=== PATIENT | female | born 1935 | race American Indian/Alaskan Native ===

== ENCOUNTER 2016-11-26 09:24 | Emergency (ER) | payer MEDICARE, BC ==
[2016-11-26 09:25] VITALS: BMI 29.5
[2016-11-26 09:38] VITALS: TEMP 98.7
[2016-11-26] MEDS ORDERED: Famotidine 20mg/50ml 20 MG/50 ML BAG IV STA (10:13)
--- NOTE | 2016-11-26 10:15 | ED PDOC ---
Arrival/HPI - General Chief Complaint: Abdominal Pain Time Seen by Provider: 11/26/16 10:10 Historian: Patient - History of Present Illness Narrative History of Present Illness (Text): 11/26/16 10:10 A 81 year old female, who denies any past medical history, presents to the emergency department complaining of intermittent mid-abdominal discomfort for the past 2 days. Patient took Aleve, with relief. She denies any exacerbating factors. Patient notes normal bowel movements. She denies pain or discomfort at this time. Patient denies any fever, chills, nausea, vomiting, chest pain, shortness of breath, dyspnea on exertion or any other complaints. PMD: Dr. Benson Espinal Time/Duration: Other (2 days) Symptom Course: Intermittent Quality: Other Context: Home Past Medical History - Provider Review Nursing Documentation Reviewed: Yes - Infectious Disease Hx of Infectious Diseases: None - Cardiac Hx Hypertension: Yes - Pulmonary Hx Respiratory Disorders: No - Neurological Hx Neurological Disorder: No Hx Paralysis: No - HEENT Hx HEENT Disorder: Yes (glassees) Hx Cataracts: Yes (right eye sx) - Renal Hx Renal Disorder: No - Endocrine/Metabolic Hx Endocrine Disorders: No - Hematological/Oncological Hx Blood Disorders: No Hx Blood Transfusions: No Hx Blood Transfusion Reaction: No - Integumentary Hx Dermatological Disorder: No - Musculoskeletal/Rheumatological Hx Musculoskeletal Disorders: Yes Hx Falls: Yes Hx Fractures: Yes (R SHOULDER) - Gastrointestinal Hx Gastrointestinal Disorders: Yes Hx Gastrointestinal Ulcer: Yes - Genitourinary/Gynecological Hx Genitourinary Disorders: No - Psychiatric Hx Psychophysiologic Disorder: No Hx Emotional Abuse: No Hx Physical Abuse: No Hx Substance Use: No - Surgical History Hx Hysterectomy: Yes (partial) - Anesthesia Hx Anesthesia Reactions: No Hx Malignant Hyperthermia: No - Suicidal Assessment Feels Threatened In Home Enviroment: No Family/Social History - Physician Review Nursing Documentation Reviewed: Yes Family/Social History: No Known Family HX Smoking Status: Never Smoked Hx Alcohol Use: No Hx Substance Use: No Allergies/Home Meds Allergies/Adverse Reactions: Allergies No Known Allergies Allergy (Verified 11/26/16 09:33) Home Medications: Home Meds Medication Instructions Recorded Confirmed Aspirin [Adult Low Dose Aspirin EC] 81 mg PO DAILY 07/28/16 11/26/16 Enalapril Maleate [Vasotec] 5 mg PO DAILY 07/28/16 11/26/16 Physical Exam - Physical Exam Narrative Physical Exam (Text): - Review of Systems Constitutional: Normal. absent: Fatigue, Weight Change, Fevers Eyes: Normal ENT: denies sore throat, denies tristhmus Respiratory: Normal. absent: SOB, Cough, Sputum Cardiovascular: absent: Chest Pain, Palpitations, Syncope Gastrointestinal: (+) Mid abdominal Pain absent: Diarrhea, Nausea, Vomiting Genitourinary: Normal. absent: Dysuria, Frequency, Hematuria Musculoskeletal: Normal. absent: Arthralgias, Back Pain, Neck Pain Skin: no rashes, no erythema Neurological: absent: Focal Weakness Endocrine: Normal Hemo/Lymphatic: Normal Psychiatric: No suicidal or homicidal ideations Physical exam Patient appears age appropriate in no distress, speaking full sentences without difficulty - Systems Exam Head: Present: Atraumatic, Normocephalic Pupils: Present: PERRL Extroacular Muscles: Present: EOMI Conjunctiva: Present: Normal Mouth: Present: Moist Mucous Membranes Neck: Present: Normal Range of Motion. No: MIDLINE TENDERNESS, Paraspinal Tenderness Respiratory/Chest: Present: Clear to Auscultation, Good Air Exchange. No: Respiratory Distress, Accessory Muscle Use, Tachypneic Cardiovascular: Present: Regular Rate and Rhythm, Normal S1, S2, Peripheal Pulses Present. No: Murmurs Abdomen: Present: Normal Bowel Sounds. No: Tenderness, Distention, Peritoneal Signs, Rebound, Guarding Back: Present: Normal Inspection. No: Midline Tenderness, Paraspinal Tenderness Upper Extremity: Present: Normal Inspection. No: Cyanosis, Edema Lower Extremity: Present: Normal Inspection. No: Edema Neurological: Present: GCS=15, Speech Normal, cranial nerves II through XII fully intact with no cerebellar abnormality, neurosensory fully intact. No focal neurological deficits. Skin: Present: Warm, Dry, Normal Color. No: Rashes Lymphatic: Present: OX3, NI, NC Psychiatric: Present: Alert, Oriented x 3, Normal Insight, Normal Concentration Vital Signs Reviewed: Yes Vital Signs Temp Pulse Resp BP Pulse Ox 11/26/16 13:30 70 18 129/78 97 11/26/16 09:34 98.7 F 69 16 130/79 98 Temperature: Afebrile Blood Pressure: Normal Pulse: Regular Respiratory Rate: Normal Appearance: Positive for: Well-Appearing, Non-Toxic, Comfortable Pain Distress: None Mental Status: Positive for: Alert and Oriented X 3 Medical Decision Making ED Course and Treatment: 11/26/16 10:10 Impression: A 81 year old female with mid abdominal discomfort. Physical exam unremarkable. Plan: -- Abdomen and pelvis CT -- Chest xray -- EKG -- Labs -- Urinalysis -- Pepcid -- Reassess and disposition Progress Notes: EKG shows NSR at [address]-segment elevations, normal intervals. Interpreted by me. Report Date : 11/26/2016 10:30:41 Procedure: Chest xray Dictator : Naresh Arteaga MD IMPRESSION: No active disease. EKG interpreted by ER physician. Normal sinus. No ST-segment elevations. Normal intervals. 11/26/16 15:22 CT Abd/Pelvis IMPRESSION: No acute abnormality. Soft tissue density partially included in this examination in the right infrahilar region. This may represent a hilar vessel but evaluation with CT of the chest is advised to exclude a pulmonary mass. pt informed of the above finding and that she needs to f/u with her PMD Dr. Espinal for further w/u On reevaluation, patient reports that she feels much better and would like to be discharged home. Patient's repeat abdominal exam is soft, nontender, non distended with positive bowel sounds in all 4 quadrants and no peritoneal signs. Patient is tolerating PO without any difficulty. trichomonus in urine, will be dc'd on flagyl. pt instructed not to consume alcohol for 2 weeks pt's Hb 8.3, this is her baseline. Pt states she understands to return to the ER right away for new or worsening symptoms or for inability to f/u with PMD or specialist as instructed. Patient states that she fully agrees with and understands discharge instructions. States that she agrees with the plan and disposition. Verbalized and repeated discharge instructions and plan. I have given the patient opportunity to ask any additional questions. - Lab Interpretations Lab Results: 11/26/16 09:55 11/26/16 09:55 Lab Results 11/26/16 14:25: Urine Color Yellow, Urine Appearance Clear, Urine pH 6.0, Ur Specific [place] >= 1.030, Urine Protein Trace H, Urine Glucose (UA) Negative, Urine Ketones Trace H, Urine Blood Negative, Urine Nitrate Negative, Urine Bilirubin Negative, Urine Urobilinogen 0.2, Ur Leukocyte Esterase Moderate H, Urine RBC Negative, Urine WBC 10 - 15, Ur Epithelial Cells 4 - 5, Urine Bacteria Trace, Urine Other Trichomonas 11/26/16 09:55: PT 11.0, INR 1.02, APTT 27.8 11/26/16 09:55: WBC 4.6, RBC 2.83 L, Hgb 8.3 L, Hct 26.0 L, MCV 91.9, MCH 29.3, MCHC 31.9, RDW 14.3, Plt Count 277, MPV 8.9, Gran % 48.9 L, Lymph % (Auto) 37.3 H, [place] % (Auto) 10.5 H, Eos % (Auto) 2.6, Baso % (Auto) 0.7, Gran # 2.24, Lymph # 1.7, [place] # 0.5, Eos # 0.1, Baso # 0.03 11/26/16 09:55: Sodium 143, Potassium 3.5 L, Chloride 106, Carbon Dioxide 28, Anion Gap 13, BUN 9, Creatinine 0.6 L, Est GFR ( Amer) > 60, Est GFR (Non -Af Amer) > 60, Random Glucose 113 H, Calcium 9.2, Total Bilirubin 0.5, AST 23, ALT 22, Alkaline Phosphatase 64, Lactate Dehydrogenase 457, Total Creatine Kinase 167, Troponin I < 0.01, Total Protein 7.2, Albumin 3.8, Globulin 3.4, Albumin/Globulin Ratio 1.1 I have reviewed the lab results: Yes - RAD Interpretation Radiology Orders: 11/26/16 10:13 ABD & PELVIS W/O PO OR IV CONT [CT] Stat 11/26/16 10:15 CHEST PORTABLE [RAD] Stat - Medication Orders Current Medication Orders: Discontinued Medications Famotidine (Pepcid 20mg/50ml Premix) 20 mg in 50 mls @ 100 mls/hr IV STAT STA Stop: 11/26/16 10:42 Last Admin: 11/26/16 10:32 Dose: 100 mls/hr eMAR Start Stop Document 11/26/16 10:32 SE (Rec: 11/26/16 10:32 SE [facility] [id number]) Intravenous Solution Start Date 11/26/16 Start Time 10:32 - Scribe Statement The provider has reviewed the documentation as recorded by the Piedad Bowen Provider Scribe Attestation: All medical record entries made by the Soniaibe were at my direction and personally dictated by me. I have reviewed the chart and agree that the record accurately reflects my personal performance of the history, physical exam, medical decision making, and the department course for this patient. I have also personally directed, reviewed, and agree with the discharge instructions and disposition. Disposition/Present on Arrival - Present on Arrival Any Indicators Present on Arrival: No History of DVT/PE: No History of Uncontrolled Diabetes: No Urinary Catheter: No History of Decub. Ulcer: No History Surgical Site Infection Following: None - Disposition Have Diagnosis and Disposition been Completed?: Yes Diagnosis: Abdominal pain Disposition: HOME/ ROUTINE Disposition Time: 15:27 Patient Plan: Discharge Condition: GOOD Discharge Instructions (ExitCare): Abdominal Pain (ED) Additional Instructions: PLEASE RETURN TO THE EMERGENCY DEPARTMENT FOR NEW OR WORSENING SYMPTOMS. RETURN RIGHT AWAY IF YOU CANNOT FOLLOW UP WITH YOUR PRIMARY CARE DOCTOR, CLINIC, OR SPECIALIST IN 1-[address] Espinal for the incidental lung mass which needs to be followed up Do not drink alcohol while taking the antibiotics Prescriptions: Famotidine [Pepcid] 20 mg PO BID #14 tab Metronidazole [Flagyl] 500 mg PO BID #14 tab Referrals: Benson Espinal MD [Primary Care Provider] - Follow up with primary Forms: [employer] (Azeri)
[2016-11-26 10:25] LABS: BASO # 0.03 K/mm3 (0.0-2.0); BASO % 0.7 % (0.0-3.0); EOS # 0.1 (0.0-0.7); EOS % 2.6 % (1.5-5.0); GRAN # 2.24 (1.4-6.5); GRAN % 48.9 % (50.0-68.0); LYMPH # 1.7 (1.2-3.4); LYMPH % 37.3 % (22.0-35.0); MEAN CELL VOLUME 91.9 fl (80.0-105.0); MEAN CORPUSCULAR HEMOGLOBIN 29.3 pg (25.0-35.0); MEAN CORPUSCULAR HGB CONC 31.9 g/dl (31.0-37.0); MEAN PLATELET VOLUME 8.9 fl (7.0-11.0); MONO # 0.5 (0.1-0.6); MONO % 10.5 % (1.0-6.0); RED CELL DISTRIBUTION WIDTH 14.3 % (11.5-14.5); WHITE BLOOD COUNT 4.6 10^3/ul (4.5-11.0)
--- NOTE | 2016-11-26 10:32 | RAD ---
HISTORY: cough COMPARISON: 03/20/2016 FINDINGS: LUNGS: No active pulmonary disease. PLEURA: No significant pleural effusion identified, no pneumothorax apparent. CARDIOVASCULAR: Normal. OSSEOUS STRUCTURES: No significant abnormalities. VISUALIZED UPPER ABDOMEN: Normal. OTHER FINDINGS: None. IMPRESSION: No active disease.
[2016-11-26 10:33] LABS: ALB/GLOB RATIO 1.1 (1.1-1.8); ALKALINE PHOSPHATASE 64 U/L (38-126); ALT/SGPT 22 U/L (7-56); AST/SGOT 23 U/L (14-36); BILIRUBIN,TOTAL 0.5 mg/dL (0.2-1.3); BLOOD UREA NITROGEN 9 mg/dL (7-21); CALCIUM 9.2 mg/dL (8.4-10.5); CARBON DIOXIDE 28 mmol/L (21-33); CHLORIDE 106 mmol/L (98-107); GFR AFRICAN-AMERICAN > 60; GLUCOSE,RANDOM 113 mg/dL (70-110); POTASSIUM 3.5 mmol/L (3.6-5.0); SODIUM 143 mmol/L (132-148); TOTAL PROTEIN 7.2 g/dL (5.8-8.3)
[2016-11-26 10:44] LABS: INR 1.02 (0.93-1.08); PARTIAL THROMBOPLASTIN TIME 27.8 Seconds (23.7-30.8)
[2016-11-26 10:48] LABS: TROPONIN I < 0.01 ng/mL
[2016-11-26 13:39] VITALS: BP 129/78; PULSE 70; RESP 18; O2SAT 97
[2016-11-26 14:29] LABS: URINE APPEARANCE CLEAR (CLEAR); URINE BILIRUBIN NEGATIVE (NEGATIVE); URINE BLOOD NEGATIVE (NEGATIVE); URINE COLOR YELLOW (YELLOW); URINE GLUCOSE (UA) NEGATIVE (NEGATIVE); URINE KETONE TRACE mg/dL (NEGATIVE); URINE LEUKOCYTE ESTERASE MODERATE Leu/uL (NEGATIVE); URINE PROTEIN TRACE mg/dL (<30 mg/dL); URINE UROBILINOGEN 0.2 E.U./dL (<1 E.U./dL)
[2016-11-26 14:34] LABS: URINE BACTERIA TRACE (NEG); URINE RBC NEGATIVE /hpf (0-2)
--- NOTE | 2016-11-26 20:01 | CT ---
PROCEDURE: CT Abdomen and Pelvis without intravenous contrast HISTORY: abd pain COMPARISON: 12/17/2015 TECHNIQUE: Without contrast.. Contrast Dose: 0 Radiation dose: Total exam DLP = 804.61 mGy-cm. This CT exam was performed using one or more of the following dose reduction techniques: Automated exposure control, adjustment of the mA and/or kV according to patient size, and/or use of iterative reconstruction technique. FINDINGS: LOWER THORAX: There is a 2 cm rounded soft tissue density only partially included in the most superior images of the lower chest. This may represent a hilar vessel. However, the possibility of a soft tissue mass must also be considered. Evaluation with CT examination of the chest is advised on a nonemergent basis to exclude pulmonary neoplasm. LIVER: Unremarkable. No gross lesion or ductal dilatation. GALLBLADDER AND BILE DUCTS: Unremarkable. PANCREAS: Unremarkable. No gross lesion or ductal dilatation. SPLEEN: Unremarkable. ADRENALS: Unremarkable. No mass. KIDNEYS AND URETERS: Unremarkable. No hydronephrosis. No solid mass. VASCULATURE: Unremarkable. No aortic aneurysm. BOWEL: Unremarkable. No obstruction. No gross mural thickening. APPENDIX: Unremarkable. Normal appendix. PERITONEUM: No ascites. No pneumoperitoneum. Note is made of a small herniation of retroperitoneal fat in the right paraspinous region (Bochdalek's hernia this is an incidental finding of no probable clinical concern.). LYMPH NODES: Unremarkable. No enlarged lymph nodes. BLADDER: Unremarkable. REPRODUCTIVE: Status post hysterectomy BONES: No acute fracture. OTHER FINDINGS: None. IMPRESSION: No acute abnormality. Soft tissue density partially included in this examination in the right infrahilar region. This may represent a hilar vessel but evaluation with CT of the chest is advised to exclude a pulmonary mass.
--- NOTE | 2016-11-26 22:42 | CARD ---
APPROVED REPORT EKG Measurement Heart [id number] <Conclusion> Poor data quality, interpretation may be adversely affected Sinus rhythm with fusion complexes Moderate voltage criteria for LVH, may be normal variant Borderline ECG
== END 2016-11-26 15:41 | disposition home or self-care (01) ==
LOC: ED 09:24
DX: R10.9 Unspecified abdominal pain (principal); I10 Essential (primary) hypertension

== ENCOUNTER 2018-03-21 09:46 | Emergency (ER) | payer BC, MEDICARE ==
[2018-03-21 10:12] VITALS: RESP 18; TEMP 98.6; BMI 29.8
[2018-03-21] MEDS ORDERED: Sodium Chloride 0.9% 1,000 ML IV STA (10:27)
--- NOTE | 2018-03-21 10:30 | ED PDOC ---
Arrival/HPI - General Chief Complaint: ENT Problem Time Seen by Provider: 03/21/18 09:52 Historian: Patient - History of Present Illness Narrative History of Present Illness (Text): 03/21/18 10:29 82 year old female, whose past medical history includes hypertension, presents to the emergency department complaining of ear pain and sore throat, for the past few days. She feels like her ear is clogged and reports a fever of 101. Patient states she experienced heart palpitations 4 days ago that has since resolved, but has some chest heaviness. She denies chills, headache, dizziness, shortness of breath, dyspnea on exertion, cough, abdominal pain, nausea, vomiting, diarrhea, back pain, neck pain, or any other complaint. PMD: Dr. Espinal Time/Duration: < week Symptom Onset: Gradual Symptom Course: Unchanged Activities at Onset: Light Context: Home Past Medical History - Provider Review Nursing Documentation Reviewed: Yes - Infectious Disease Hx of Infectious Diseases: None - Cardiac Hx Hypertension: Yes - Pulmonary Hx Respiratory Disorders: No - Neurological Hx Neurological Disorder: No Hx Paralysis: No - HEENT Hx HEENT Disorder: Yes (glassees) Hx Cataracts: Yes (right eye sx) - Renal Hx Renal Disorder: No - Endocrine/Metabolic Hx Endocrine Disorders: No - Hematological/Oncological Hx Blood Disorders: No Hx Blood Transfusions: No Hx Blood Transfusion Reaction: No - Integumentary Hx Dermatological Disorder: No - Musculoskeletal/Rheumatological Hx Musculoskeletal Disorders: Yes Hx Falls: Yes Hx Fractures: Yes (R SHOULDER) - Gastrointestinal Hx Gastrointestinal Disorders: Yes Hx Gastrointestinal Ulcer: Yes - Genitourinary/Gynecological Hx Genitourinary Disorders: No - Psychiatric Hx Psychophysiologic Disorder: No Hx Emotional Abuse: No Hx Physical Abuse: No Hx Substance Use: No - Surgical History Hx Cataract Extraction: Yes Hx Hysterectomy: Yes (partial) - Anesthesia Hx Anesthesia: Yes Hx Anesthesia Reactions: No Hx Malignant Hyperthermia: No - Suicidal Assessment Feels Threatened In Home Enviroment: No Family/Social History - Physician Review Nursing Documentation Reviewed: Yes Family/Social History: No Known Family HX Smoking Status: Never Smoked Hx Alcohol Use: No Hx Substance Use: No Allergies/Home Meds Allergies/Adverse Reactions: Allergies No Known Allergies Allergy (Verified 11/26/16 09:33) Home Medications: Home Meds Medication Instructions Recorded Confirmed Aspirin [Adult Low Dose Aspirin EC] 81 mg PO DAILY 07/28/16 03/21/18 Enalapril Maleate [Vasotec] 5 mg PO DAILY 07/28/16 03/21/18 Calcium Carbonate [Calcium] 500 mg PO DAILY 12/15/16 03/21/18 Famotidine [Pepcid] 20 mg PO PRN PRN 12/15/16 03/21/18 Vitamin E 500 unit PO DAILY 12/15/16 03/21/18 Review of Systems - Physician Review All systems were reviewed & negative as marked: Yes - Review of Systems Respiratory: absent: SOB Gastrointestinal: absent: Abdominal Pain Physical Exam - Physical Exam Narrative Physical Exam (Text): 03/21/18 10:28 Constitutional: No acute distress. Head: Normocephalic. Atraumatic. Eyes: PERRL. ENT: Moist mucous membranes. Left ear cerumen. Right normal TM. No pharyngeal erythema or exudates. Neck: Supple. Cardiovascular: Regular rate. Chest: No tenderness. Right clavicle deformit Respiratory: Clear to auscultation bilaterally. GI: Soft. Nontender. Nondistended. Back: No CVA tenderness. Musculoskeletal: No tenderness or swelling of extremities. Skin: No rash. Neurologic: Alert, no focal deficit. Vital Signs Reviewed: Yes Vital Signs Temp Pulse Resp BP Pulse Ox 03/21/18 10:11 98.6 F 69 18 161/90 H 97 Temperature: Afebrile Blood Pressure: Hypertensive Pulse: Regular Respiratory Rate: Normal Appearance: Positive for: Well-Appearing, Non-Toxic, Comfortable Pain Distress: None Mental Status: Positive for: Alert and Oriented X 3 Medical Decision Making ED Course and Treatment: 03/21/18 10:28 Impression: 82 year old female who presents tot he emergency department complaining of sore throat and ear pain. Plan: -- Labs -- Chest X-ray -- IV fluids -- Toradol -- Influenza A B -- Reassess and disposition Prior Visits: Notes and results from previous visits were reviewed. Progress Notes: EKG reviewed by me at 10:26, shows: NSR at [address]/T wave changes. 03/21/18 12:57 Chest X-ray reviewed by me, shows: no pneumonia. 03/21/18 13:05 Labs unremarkable. Discharged home, f/u PMD, return to ED for worsening pain, fever, vomiting, dyspnea, or any other problem. - Lab Interpretations I have reviewed the lab results: Yes - RAD Interpretation Radiology Orders: 03/21/18 10:27 CHEST PORTABLE [RAD] Stat Power System Dispatcher: Radiologist - Scribe Statement The provider has reviewed the documentation as recorded by the Scribe Xuan Bowen Provider Scribe Attestation: All medical record entries made by the Scribe were at my direction and personal ly dictated by me. I have reviewed the chart and agree that the record accurately reflects my personal performance of the history, physical exam, medical decision making, and the department course for this patient. I have also personally directed, reviewed, and agree with the discharge instructions and disposition. Disposition/Present on Arrival - Present on Arrival Any Indicators Present on Arrival: No History of DVT/PE: No History of Uncontrolled Diabetes: No Urinary Catheter: No History of Decub. Ulcer: No History Surgical Site Infection Following: None - Disposition Have Diagnosis and Disposition been Completed?: Yes Diagnosis: Cerumen impaction Disposition: HOME/ ROUTINE Disposition Time: 13:05 Patient Plan: Discharge Condition: STABLE Discharge Instructions (ExitCare): Ear Wax Impaction Prescriptions: Amoxicillin/Clavulanate [Augmentin 875 MG-125 MG] 1 tab PO BID #20 tab Carbamide Peroxide [Debrox Ear Drops] 5 drop BID #1 bottle Referrals: Benson Espinal MD [Family Provider] - Follow up with primary Forms: [employer] (Scottish)
[2018-03-21 11:28] LABS: BASO # 0.02 K/mm3 (0.0-2.0); BASO % 0.3 % (0.0-3.0); EOS # 0.1 (0.0-0.7); EOS % 1.7 % (1.5-5.0); HEMOGLOBIN 10.8 g/dL (12.0-16.0); LYMPH # 2.2 (1.2-3.4); LYMPH % 37.5 % (22.0-35.0); MEAN CELL VOLUME 93.2 fl (80.0-105.0); MEAN CORPUSCULAR HEMOGLOBIN 29.3 pg (25.0-35.0); MEAN CORPUSCULAR HGB CONC 31.5 g/dl (31.0-37.0); MEAN PLATELET VOLUME 8.9 fl (7.0-11.0); MONO # 0.8 (0.1-0.6); MONO % 13.6 % (1.0-6.0); RBC 3.68 10^6/uL (3.5-6.1); RED CELL DISTRIBUTION WIDTH 13.8 % (11.5-14.5); WHITE BLOOD COUNT 5.9 10^3/uL (4.5-11.0)
[2018-03-21 11:48] LABS: ALB/GLOB RATIO 1.1 (1.1-1.8); ALBUMIN 4.2 g/dL (3.0-4.8); ALT/SGPT 20 U/L (7-56); AST/SGOT 21 U/L (14-36); BLOOD UREA NITROGEN 19 mg/dL (7-21); GFR NON-AFRICAN AMERICAN > 60
[2018-03-21 13:00] LABS: TROPONIN I 0.01 ng/mL
[2018-03-21 13:41] VITALS: BP 164/93; PULSE 69; O2SAT 99
--- NOTE | 2018-03-21 14:35 | RAD ---
Date of service: 03/21/2018 HISTORY: r/o PNA COMPARISON: Portable chest 11/26/2016. FINDINGS: LUNGS: Medial right apical density may reflect great vessel ectasis or even substernal thyroid gland prominence in this patient is rotated toward the right though not as prominently as previously rotated on 11/26/2016. This is a stable finding and is therefore felt to reflect a benign process. Clinically correlate. Follow-up CT of the chest can be utilized characterize this region. No acute airspace disease appreciated bilaterally. PLEURA: No significant pleural effusion identified, no pneumothorax apparent. CARDIOVASCULAR: Calcific atherosclerotic changes are seen related to the thoracic aorta. Mild cardiomegaly reiterated. No pulmonary vascular congestion. OSSEOUS STRUCTURES: No significant abnormalities. VISUALIZED UPPER ABDOMEN: Stable left hemidiaphragm elevation noted. OTHER FINDINGS: None. IMPRESSION: No interval acute cardiopulmonary disease appreciated. Mild cardiomegaly unchanged. No pulmonary vascular congestion.
--- NOTE | 2018-03-22 12:49 | CARD ---
APPROVED REPORT Date of service: 03/21/2018 EKG Measurement Heart [id number] <Conclusion> Normal sinus rhythm Voltage criteria for left ventricular hypertrophy
== END 2018-03-21 13:42 | disposition home or self-care (01) ==
LOC: ED 09:46
DX: H92.09 Otalgia, unspecified ear (principal); H61.22 Impacted cerumen, left ear; I10 Essential (primary) hypertension
CPT/HCPCS: 71045; 80053; 82550; 84484; 85025; 87804; 93005; 96374; 99284; J1885; J7030